=== PATIENT | male | born 2000 | race Caucasian/White ===

== ENCOUNTER 2023-12-18 09:59 | Emergency (ER) | payer BC ==
[~2023-12-18] VITALS: Ht 182.9 cm; Wt 78.5 kg
[2023-12-18 10:58] LABS: Eosinophils # (auto) 0 10 ^3/uL (0-0.8)
[2023-12-18 11:02] LABS: Basophils # (auto) 0.2 10 ^3/uL (0-0.2); Basophils % (auto) 2.1 % (0.0-2.0); Hematocrit 52.6 % (41.0-53.0); Hemoglobin 17.9 g/dL (13.5-17.5); Lymphocytes # (auto) 2.1 10 ^3/uL (0.4-5.4); Mean Corpuscular Hemoglobin 28.2 pg (28.0-32.0); Mean Corpuscular Hgb Conc. 34.1 g/dL (32.0-36.0); Mean Corpuscular Volume 82.7 fL (80.0-100.0); Monocytes # (auto) 0.6 10 ^3/uL (0-1.3); Monocytes % (auto) 7.2 % (0.0-12.0); Neutrophils # (auto) 5.2 10 ^3/uL (1.6-8.6); Neutrophils % (auto) 64.7 % (37.0-80.0); Nucleated Red Blood Cells % 0.8 %; Red Blood Cells 6.36 10^6/uL (4.5-5.90)
[2023-12-18 11:12] LABS: Alanine Aminotransferase 56 U/L (7-40); Alkaline Phosphatase 92 U/L (46-116); Anion Gap 7 (5-15); Aspartate Aminotransferase 35 U/L (13-40); BUN/Creatinine Ratio 7.4 (10.0-20.0); Bilirubin, Total 0.7 mg/dL (0.2-1.0); Blood Urea Nitrogen 7 mg/dL (9-23); Carbon Dioxide 26 mmol/L (20-30); Chloride 106 mmol/L (98-107); Glucose 104 mg/dL (74-106); Potassium 4.1 mmol/L (3.5-5.1); Sodium 139 mmol/L (136-145); Total Protein 7.9 g/dL (5.7-8.2)
[2023-12-18 11:25] LABS: Lipase 33 U/L (12-53); Magnesium 2.1 mg/dL (1.6-2.6)
[2023-12-18 13:47] VITALS: BP 140/80; TEMP 98.1
[2023-12-18] MEDS: SODIUM CHLORIDE 0.9% 2,350 ML IV ONE (13:54)
[2023-12-18] MEDS: SODIUM CHLORIDE 0.9% 1,000 ML IV ONE (13:56)
[2023-12-18 14:40] VITALS: PULSE 102; RESP 18; O2SAT 98
== END 2023-12-18 14:41 | disposition home or self-care (01) ==
LOC: ER 09:59
DX: R42 Dizziness and giddiness (principal); B34.9 Viral infection, unspecified; F10.10 Alcohol abuse, uncomplicated; F12.10 Cannabis abuse, uncomplicated; Y90.9 Presence of alcohol in blood, level not specified
CPT/HCPCS: 36415; 80053; 83690; 83735; 84484; 85025; 85379; 93005; 96360; 99284; J7030